=== PATIENT | male | born 1945 | race Hispanic/Latino ===

== ENCOUNTER 2020-04-05 12:36 | Outpatient (CLI) | payer MEDICARE ==
[2020-04-05 13:18] LABS: Hematocrit 44.7 % (35.5-45.6); Hemoglobin 15.1 gm/dl (11.8-15.2); Mean Corpuscular HGB Conc 34 % (32-34); Mean Corpuscular Volume 94 fl (84-94); Platelet Count 228 K/mm3 (140-440); Red Blood Count 4.76 M/mm3 (3.65-5.03); Red Cell Distribution Width 12.4 % (13.2-15.2)
[2020-04-05 13:38] LABS: Erythrocyte Sedimentation Rate 4 mm/Hr (0-20)
[2020-04-05 13:40] LABS: Alanine Aminotransferase 23 units/L (7-56); Albumin 4.2 g/dL (3.9-5); BUN/Creatinine Ratio 26; Blood Urea Nitrogen 21 mg/dL (9-20); Calcium 9.5 mg/dL (8.4-10.2); Hemolysis Index 3
[2020-04-08 12:22] LABS: Vitamin D, 25-OH, D2 <4 ng/mL
[2020-04-09 23:02] LABS: Gamma Globulin 1.2 g/dL (0.8-1.7)
[2020-04-10 13:17] LABS: ANA Screen, IFA Negative (Negative)
== END 2020-04-05 12:37 | disposition home or self-care (01) ==
LOC: LAB 12:36
PROVIDERS: ATTEND Specialist
DX: G65.1 Sequelae of other inflammatory polyneuropathy (principal); G62.9 Polyneuropathy, unspecified; E11.9 Type 2 diabetes mellitus without complications; N52.9 Male erectile dysfunction, unspecified
CPT/HCPCS: 36415; 80053; 82306; 82607; 83036; 83921; 84165; 84443; 85027; 85652; 86038; 86334; 86592